=== PATIENT | female | born 1945 | race Caucasian/White ===

== ENCOUNTER → 2017-08-31 | Outpatient (CLI) | payer MEDICARE ==
[~2017-08-31] MED LIST: BIOT10TA PO; CEPH500T PO; CYAN100025 PO; D31000CA3 PO; DOXY0.02 PO; PERC10TA27 PO; VITA500T83 PO
[2017-08-31 09:52] LABS: AUTOMATED NEUTROPHIL # 2.1 TH/MM3 (1.8-7.7); BASOPHIL % 0.7 % (0.0-2.0); EOSINOPHIL # 0.1 TH/MM3 (0-0.4); EOSINOPHIL % 2.5 % (0.0-4.0); HEMATOCRIT 42.3 % (35.0-46.0); HEMO FLAGS DIFF FINAL; LYMPH % 20.6 % (9.0-44.0); LYMPHOCYTE # 0.7 TH/MM3 (1.0-4.8); MEAN CELL VOLUME 90.1 FL (80.0-100.0); MEAN CORPUSCULAR HEMOGLOBIN 29.7 PG (27.0-34.0); MEAN CORPUSCULAR HGB CONC 32.9 % (32.0-36.0); MONO % 10.1 % (0.0-8.0); NEUT % 66.1 % (16.0-70.0); PLATELET COUNT 176 TH/MM3 (150-450); RED BLOOD COUNT 4.69 MIL/MM3 (4.00-5.30); RED CELL DISTRIBUTION WIDTH 14.3 % (11.6-17.2); WHITE BLOOD COUNT 3.2 TH/MM3 (4.0-11.0)
[2017-08-31 09:56] LABS: BLOOD, URINE NEG (NEG); COMMENT (UR) CULT NOT INDICATED; CULTURE IF INDICATED CULT NOT INDICATED; GLUCOSE,URINE NEG (NEG); KETONE, URINE 10 mg/dL (NEG); MUCUS URINE FEW /lpf (OCC); NITRITE,URINE NEG (NEG); SQUAMOUS EPITHELIAL CELL URINE <1 /hpf (0-5); URINE COLOR YELLOW (YELLW/STRAW)
[2017-08-31 10:00] LABS: PROTHROMBIN TIME - PATIENT 10.8 SEC (9.8-11.6)
[2017-08-31 10:22] LABS: ALT (GPT) 14 U/L (10-53); ANION GAP 6 MEQ/L (5-15); AST (GOT) 14 U/L (15-37); BICARBONATE 27.7 MEQ/L (21.0-32.0); BLOOD UREA NITROGEN 16 MG/DL (7-18); CHLORIDE 105 MEQ/L (98-107); GLOMERULAR FILTRATION RATE 60 ML/MIN (>89); GLUCOSE,FASTING 86 MG/DL (74-99); POTASSIUM 3.8 MEQ/L (3.5-5.1); SODIUM (NA) 139 MEQ/L (136-145)
[2017-08-31 10:25] LABS: ALKALINE PHOSPHATASE 70 U/L (45-117); TOTAL BILIRUBIN ADULT 0.5 MG/DL (0.2-1.0)
--- NOTE | 2017-08-31 11:27 | RADRPT ---
EXAM DATE/TIME: 08/31/2017 10:21 [facility] COMPARISON: No previous studies available for comparison. INDICATIONS : Evaluate for pneumonia, pneumothorax or communicable disease. Pre op for left foot surgery 09/02/17 MEDICAL HISTORY : None. SURGICAL HISTORY : None. ENCOUNTER: Initial ACUITY: 1 day PAIN SCORE: 0/10 LOCATION: Bilateral chest FINDINGS: PA and lateral views of the chest demonstrate the lungs to be symmetrically aerated without evidence of mass, infiltrate or effusion. Small calcified granuloma within the left upper lobe. The cardiomedi astinal contours are unremarkable. Osseous structures are intact. Calcified breast implants bilatera lly. CONCLUSION: No acute disease. Micheal Olmos Jr., MD on August 31, 2017 at 11:25 Board Certified Radiologist. This report was verified electronically.
--- NOTE | 2017-09-01 15:43 | EKG ---
Date Performed: 08/31/2017 Time Performed: 09:41:12 PTAGE: 71 years EKG: ECTOPIC ATRIAL RHYTHM INFERIOR MYOCARDIAL INFARCTION, PROBABLY OLD ABNORMAL ECG NO PREVIOUS TRACING DOCTOR: William Winston Interpretating Date/Time 09/01/2017 15:42:36
== END ==
LOC: CPRE 09:13
PROVIDERS: ATTEND Podiatrist Primary Podiatric Medicine
DX: Z01.812 Encounter for preprocedural laboratory examination (principal); Z01.810 Encounter for preprocedural cardiovascular examination; Z01.811 Encounter for preprocedural respiratory examination; M20.12 Hallux valgus (acquired), left foot; M20.41 Other hammer toe(s) (acquired), right foot; M20.42 Other hammer toe(s) (acquired), left foot
CPT/HCPCS: 36415; 71020; 80053; 81001; 85025; 85610; 93005

== ENCOUNTER → 2017-09-02 | Day surgery (SDC) | payer MEDICARE ==
[~2017-09-02] VITALS: Ht 160 cm; Wt 61.0 kg
[~2017-09-02] MED LIST changes: +*morphine SULFATE 8 MG/ML PERIprocedure ONLY ONE; +ACETAMINOPHEN 1000 MG/100 ML 100 ML IV ONE; +ACETAMINOPHEN 325 MG TAB PO PRN; +BUPIVACAINE HCL PF 0.5% 30 ML VIAL ONE; +CHLORHEXIDINE GLUCONATE 2 % 1 PACK (2 CLOTHS) TOPICAL PRN; +DO NOT ADM ANY ANTICOAGULANT DRUGS PRN; -DOXY0.02 PO; +HYDROmorphone HCL PF 1 MG/ML VIAL IV PUSH PRN; +LACTATED RINGER'S 1000 ML IV PRN; +LIDOCAINE HCL 1% 50 ML VIAL ONE; +METOPROLOL TARTRATE 25 MG TAB PO PRN; +NALOXONE HCL 0.4 MG/ML AMP IV PUSH PRN; +POVIDONE IODINE 5% (ANTISEPSIS KIT) 4 APPLICATIONS EACH NARE PRN; +Post-op Orders (for Pharmacy) MISC XX ONE; +SODIUM CHLORID 0.9% 500 ML IV PRN; +SODIUM CHLORIDE 0.9% FLUSH 10 ML FLUSH IV FLUSH PRN; +SODIUM CHLORIDE 0.9% FLUSH 10 ML FLUSH IV FLUSH SCH; +SUGAMMADEX SODIUM 200 MG/2 ML VIAL IV PUSH ONE; +ceFAZolin 2 GM PREMIX 50 ML IV SCH
--- NOTE | 2017-09-02 11:23 | PD.OP ---
Operative Report Surgeon: Prudencio Bassett DPM Sep 02, 2017 11:23
--- NOTE | 2017-09-02 11:36 | PD.OP ---
Operative Report Date of Surgery: Sep 02, 2017 Preoperative Diagnosis: (1) Hallux abductovalgus with bunions (2) Hammertoe of left foot The abductovalgus left foot, hammertoes 2,3 and 4, left foot Postoperative Diagnosis: (1) Hallux abductovalgus with bunions (2) Hammertoe of left foot Hallux abductovalgus left foot, hammertoes 2, 3 and 4 left foot Procedure: Closing base wedge osteotomy first metatarsal with first met head osteotomy left foot Arthrodesis of toes 2, 3 and 4 left foot Anesthesia: Gen. Surgeon: Prudencio Owen DPM Traveling Crane Operator(s): None Operation and Findings: Patient was brought to the operating room placed on the operative operating table in the supine position. Pneumatic ankle cuff was placed around the patient's left ankle after adequate web roll padding. Patient was given general anesthesia and the left foot was prepped and draped in the usual sterile manner. After the appropriate timeout was performed the left foot was elevated above the operating table for a period of 3 minutes at which time the pneumatic ankle cuff was inflated to 250 mm of mercury. The left foot was lowered to the operating table and attention was directed to the first ray of the left foot which is to noted to have severe hallux abductovalgus with a large metatarsal intermetatarsal angle. At this time a 7 cm incision was made on the dorsal medial aspect of the first metatarsal extending to the metatarsal phalangeal joint. The incision was deepened using sharp and blunt dissection taking care to tie off all superficial bleeding vessels and retracting all vital structures. The incision was deepened down at the proximal first metatarsal using an oscillating saw saw closing base wedge was performed with the apex medially and the base laterally removing a wedge of bone at this time the osteotomy was closed and a 3.0 cannulated screw was placed across the osteotomy site for fixation. Attention was then directed to the head of the first metatarsal where the periosteum and capsule were freed up from the head of the first metatarsal. The dorsal medial bony eminence was resected. An osteotomy was performed in the head of the first metatarsal and the following manner. A through and through osteotomy was made centered from the head of the metatarsal exiting plantar proximally to the articular cartilage. Tension was then directed to the dorsal aspect of the first metatarsal head where a wedge osteotomy with the apex laterally and the base medially. The osteotomy was performed of the way through the head of the bone and the resulting wedge of bone was removed. The lateral cortex was then feathered until closure of the osteotomy was achieved. 3.0 cannulated screw were then placed across the osteotomy site from the first metatarsal shaft into the head of the first metatarsal. Closure of both osteotomies was noted. There is flushed with copious amounts of sterile saline. Subcutaneous and subcuticular and capsular edges were closed with 3-0 Vicryl and skin edges was closed with 3-0 nylon. Should be noted the hallux now sat in a more correct anatomical position. Attention was directed to the second toe of the left foot which was noted to have severe hammertoe deformity at the proximal interphalangeal joint. At this time a linear incision was made on the dorsal aspect of the second toe overlying the proximal interphalangeal joint. Deepened using sharp and blunt dissection taking care to retract all vital structures. A transverse tenotomy was made at the proximal interphalangeal joint. The head of the proximal phalanx and the base of the intermediate phalanx was then freed up and using an oscillating saw the articular cartilage was resected from both areas. At this time a 0.45 K wire was driven from the intermediate phalanx out distally through the distal aspect of the toe and retrograded back into the proximal phalanx. Should be noted that the second toe sat in a more correct anatomical position. The K wire was then cut bent and capped. At this time skin closed using 3-0 nylon more correct anatomic position. Attention was then directed to the third and fourth toes were the same as performed on the second toe was performed with good results obtained. The foot was anesthetized with 30 cc of 0.5% Marcaine plain. Incisions were dressed with Adaptic 4 x 4's and Ney. The pneumatic ankle cuff was deflated at the 90 minute johan. Vascular status returned to all digits of the left foot. Foot was dressed with Adaptic 4 x 4's and a Ney roll. A posterior splint was then applied. No specimen for path was noted. Sponge and instrument count were noted to be correct. Estimated blood loss was less than 10 cc. Patient tolerated the procedures and anesthesia well and left the OR to PACU in apparent satisfactory condition without vital signs stable and vascular status intact to all digits of the left foot Prudencio Owen DPM Sep 02, 2017 11:36
--- NOTE | 2017-09-02 12:17 | RADRPT ---
EXAM DATE/TIME: 09/02/2017 11:39 [facility] COMPARISON: No previous studies available for comparison. INDICATIONS : Post op left foot surgery. MEDICAL HISTORY : None. SURGICAL HISTORY : None. ENCOUNTER: Initial ACUITY: 1 day PAIN SCORE: 3/10 LOCATION: Left foot FINDINGS: Pins are seen bridging the second third and fourth phalanges. Alignment is anatomic. Cortical lag s crews are seen in the first metatarsal. Alignment anatomic. CONCLUSION: Postop changes, anatomic alignment. Rj Alicea MD FACR on September 02, 2017 at 12:14 Board Certified Radiologist. This report was verified electronically.
[2017-09-02 12:45] VITALS: BP 133/61; PULSE 78; RESP 18; TEMP 97.6; O2SAT 96
== END | disposition home or self-care (01) ==
LOC: HSDC 06:48
PROVIDERS: ATTEND Podiatrist Primary Podiatric Medicine
DX: M20.12 Hallux valgus (acquired), left foot (principal); M20.42 Other hammer toe(s) (acquired), left foot; M21.612 Bunion of left foot
CPT/HCPCS: 01480; 28285; 28299; 73630; 97162; C1713; G8987; G8988; J0131; J0690; J2270; J7120